=== PATIENT | female | born 1985 | race Caucasian/White ===

== ENCOUNTER 2017-01-03 14:16 | Emergency (ER) | payer BC ==
[~2017-01-03] VITALS: Ht 160 cm; Wt 85.3 kg
[~2017-01-03 14:16] MED LIST: MTR600X PO; OXYC5TAB PO; PRENTAB26 PO
[2017-01-03 14:20] VITALS: TEMP 36.3; Ht 160 cm; Wt 85.3 kg
[2017-01-03] MEDS ORDERED: SODIUM CHLORIDE 0.9% 1000ML 1,000 ML IV STA (14:43)
[2017-01-03] MEDS ORDERED: ONDANSETRON INJ 2 MG/ML 2 ML VIAL IV STA (14:51)
[2017-01-03 15:16] LABS: BASO % 0.2 %; BASO ABS # 0.02 K/uL (0-0.2); COMPLETE YES; EOS % 0.7 %; HEMATOCRIT 47.1 % (37-47); IG% 0.2 %; LYMPH % 16.8 %; LYMPH ABS # 1.82 K/uL (1.2-3.4); MEAN CELL VOLUME 87.2 fL (80-100); MEAN CORPUSCULAR HEMOGLOBIN 29.3 pg (25-34); MEAN CORPUSCULAR HGB CONC 33.5 g/dl (32-36); MEAN PLATELET VOLUME 9.9 fL (7.4-10.4); MONO % 7.5 %; NEUT % 74.6 %; PLATELET COUNT 271 K/uL (130-400); WHITE BLOOD COUNT 10.83 K/uL (4.8-10.8)
[2017-01-03] MEDS ORDERED: BUPR200T2 PO (15:20)
[2017-01-03] MEDS ORDERED: BCPILLS PO (15:20)
[2017-01-03] MEDS ORDERED: ONDA4TAB46 PO (15:20)
[2017-01-03] MEDS ORDERED: CNC/36 PO (15:20)
[2017-01-03 15:26] LABS: BUN/CREATININE RATIO 15.7 (10-20); CALCIUM 9.1 mg/dl (8.5-10.1); CREATININE 0.9 mg/dl (0.60-1.20); POTASSIUM 3.9 mmol/L (3.5-5.1)
--- NOTE | 2017-01-03 15:27 | DIAGNOSTIC IMAGING REPORT ---
ABDOMEN AND PELVIS CT WITHOUT CONTRAST CT DOSE: 1410.96 mGy.cm HISTORY: ryanne flank pain TECHNIQUE: Multiaxial CT images of the abdomen and pelvis were performed without the use of intravenous and oral contrast according to the standard department stone protocol. COMPARISON STUDY: None. FINDINGS: The lung bases are clear. The unenhanced liver, gallbladder, spleen, pancreas, and adrenal glands are unremarkable. No renal stones or hydronephrosis. No bowel wall thickening or obstruction. The pelvic organs are unremarkable. No suspicious lytic or blastic osseous lesions. IMPRESSION: No renal stones or hydronephrosis. Negative study Electronically signed by: Amol Castañeda M.D. 01/03/2017 3:26 PM Dictated Date/Time: 01/03/2017 3:22 PM
--- NOTE | 2017-01-03 15:45 | EMERGENCY ROOM VISIT NOTE ---
History First contact with patient: 14:26 Chief Complaint: VOMITING Stated Complaint: THROWING UP EXTREME BACK PAIN History of Present Illness The patient is a 31 year old female who presents to the Emergency Room with complaints of bilateral flank pain, bloating, nausea with vomiting. Patient states 2 weeks ago, she experienced an episode of back pain after working outside. She thought she may have been dehydrated at the time, due to working in the heat and not drinking much fluid. Patient states she went inside, laid on the floor, and drink water and Gatorade which made her at this time. Patient states she went to [facility] after this episode, where she was diagnosed with bronchitis and acute sinusitis. Patient states she was put on Augmentin twice a day and benzonatate which she finished this week. Patient states for the past 2 months, she has experienced abnormal uterine bleeding, and describes 2 periods per month. Patient states this began after she started on oral control pills in September. Patient is 8 months , and states she had a last April. This morning, patient states she began experiencing nausea at around 8:30. Patient states this improved after a short time. She states approximately 3 hours later, she began experiencing bilateral lower back pain. She thought she may have also been dehydrated at this time due to only drinking 2 cups of coffee this morning, so she drank some water, which caused her to become nauseated and throw up. Patient states now she is experiencing bilateral lower back pain, which comes in waves, and reports feeling very bloated, despite throwing up. Reports chills and sweats, but denies fever, body aches, abdominal pain, dyspnea, dysuria, hematuria, other associated symptoms. Patient did eat sticky buns this morning at around 9:30, which she didn't throw up. She states after vomiting, she was successful at 83 pretzels without further nausea or vomiting. Patient states at [facility] 2 weeks ago, she had a test completed, which was negative. Review of Systems A complete 10-system review of systems was performed. All pertinent positive and negative findings documented in HPI. All other ROS negative. Past Medical/Surgical History Medical Problems: (1) False labor (2) Term Social History Smoking Status: Never Smoker Smokeless Tobacco Use: No Alcohol Use: occasionally Drug Use: none Marital Status: Housing Status: lives with family Current/Historical Medications Scheduled Control Pills ( Control Pills), 1 TAB PO DAILY Bupropion (Wellbutrin Sr), 200 MG PO BID Methylphenidate Hcl (Concerta), 36 MG PO DAILY Ondasetron Odt (Zofran Odt), 4 MG SL Q6H Scheduled PRN Ondansetron Hcl (Zofran), 1 TAB PO PRN UD PRN for Nausea Allergies Coded Allergies: No Known Allergies (Unverified , 04/24/16) Physical Exam Vital Signs Date Time Temp Pulse Resp B/P (MAP) Pulse Ox O2 Delivery O2 Flow Rate FiO2 01/03/17 16:58 88 15 118/71 97 01/03/17 14:20 36.3 72 18 112/72 100 Room Air Physical Exam VITALS: Vitals are noted on the nurse's note and reviewed by myself. Vital signs stable. GENERAL: A 31-year-old female, in no acute distress, nondiaphoretic, well- developed well-nourished. HEENT: Normocephalic. PERRLA. EOMI. Nares patent. Mucous membranes moist. Neck is supple without nuchal rigidity. SKIN: The skin was without rashes, erythema, edema, or bruising. Capillary refill less than 2 seconds. NECK: Supple without nuchal rigidity. No cervical spine tenderness. No paraspinous muscle tenderness. HEART: Regular rate and rhythm without murmurs gallops or rubs. LUNGS: Clear to auscultation bilaterally without wheezes, rales or rhonchi. ABDOMEN: Supine position does worsen patient's flank pain. She is finding it difficult to lie in this position for any length of time. Positive bowel sounds x 4. Normal tympanic percussion. Positive CVA tenderness bilaterally Soft, nontender, without masses or organomegaly. Larkin sign negative. MUSCULOSKELETAL: No muscle atrophy, erythema, or edema noted of the back. There is no tenderness over the lumbar spinous processes. There is no tenderness over the paraspinous muscles bilaterally. There is no tenderness over the thoracic spine or paraspinous muscles. There are no muscle spasms present. The patient is slow to move around with maximum tenderness with lying supine. Negative straight leg raise test bilaterally. NEURO: Patient was alert and oriented to person place and time. Normal sensation to light and sharp touch. Deep tendon reflexes 2+ in the lower extremities. Dorsalis pedis pulse 2+ bilaterally. Strength 5/5 and equal in the bilateral lower extremities. Re-examination of Abdomen after fluids and Zofran: Pt. able to tolerate supine position. Minimal CVA tenderness on percussion. Positive Bowel sounds x4. Normal tympanic percussion. Abdomen soft, nontender, without masses or organomegaly. Larkin sign negative. Medical Decision & Procedures ER Provider Diagnostic Interpretation: CT Abdomen/Pelvis without Oral or IV contrast completed to r/o nephrolithiasis. Results read by radiologist and are as follows: FINDINGS: The lung bases are clear. The unenhanced liver, gallbladder, spleen, pancreas, and adrenal glands are unremarkable. No renal stones or hydronephrosis. No bowel wall thickening or obstruction. The pelvic organs are unremarkable. No suspicious lytic or blastic osseous lesions. IMPRESSION: No renal stones or hydronephrosis. Negative study Laboratory Results 01/03/17 14:59 Red Blood Count 5.40, Mean Corpuscular Volume 87.2, Mean Corpuscular Hemoglobin 29.3, Mean Corpuscular Hemoglobin Concent 33.5, Mean Platelet Volume 9.9, Neutrophils (%) (Auto) 74.6, Lymphocytes (%) (Auto) 16.8, Monocytes (%) (Auto) 7.5, Eosinophils (%) (Auto) 0.7, Basophils (%) (Auto) 0.2, Neutrophils # (Auto) 8.08, Lymphocytes # (Auto) 1.82, Monocytes # (Auto) 0.81, Eosinophils # (Auto) 0.08, Basophils # (Auto) 0.02 01/03/17 14:59 Test 01/03/17 14:59 01/03/17 16:10 White Blood Count 10.83 K/uL (4.8-10.8) Red Blood Count 5.40 M/uL (4.2-5.4) Hemoglobin 15.8 g/dL (12.0-16.0) Hematocrit 47.1 % (37-47) Mean Corpuscular Volume 87.2 fL (80-100) Mean Corpuscular Hemoglobin 29.3 pg (25-34) Mean Corpuscular Hemoglobin Concent 33.5 g/dl (32-36) Platelet Count 271 K/uL (130-400) Mean Platelet Volume 9.9 fL (7.4-10.4) Neutrophils (%) (Auto) 74.6 % Lymphocytes (%) (Auto) 16.8 % Monocytes (%) (Auto) 7.5 % Eosinophils (%) (Auto) 0.7 % Basophils (%) (Auto) 0.2 % Neutrophils # (Auto) 8.08 K/uL (1.4-6.5) Lymphocytes # (Auto) 1.82 K/uL (1.2-3.4) Monocytes # (Auto) 0.81 K/uL (0.11-0.59) Eosinophils # (Auto) 0.08 K/uL (0-0.5) Basophils # (Auto) 0.02 K/uL (0-0.2) RDW Standard Deviation 42.6 fL (36.4-46.3) RDW Coefficient of Variation 13.4 % (11.5-14.5) Immature Granulocyte % (Auto) 0.2 % Immature Granulocyte # (Auto) 0.02 K/uL (0.00-0.02) Anion Gap 8.0 mmol/L (3-11) Est Creatinine Clear Calc Drug Dose 93.7 ml/min Estimated GFR () 98.7 Estimated GFR (Non- 85.2 BUN/Creatinine Ratio 15.7 (10-20) Calcium Level 9.1 mg/dl (8.5-10.1) Total Bilirubin 0.7 mg/dl (0.2-1) Direct Bilirubin 0.4 mg/dl (0-0.2) Aspartate Amino Transf (AST/SGOT) 104 U/L (15-37) Alanine Aminotransferase (ALT/SGPT) 56 U/L (12-78) Alkaline Phosphatase 85 U/L (45-117) Total Protein 7.6 gm/dl (6.4-8.2) Albumin 3.8 gm/dl (3.4-5.0) Lipase 210 U/L (73-393) Urine Color DK YELLOW Urine Appearance CLEAR (CLEAR) Urine pH 6.0 (4.5-7.5) Urine Specific [place] 1.026 (1.000-1.030) Urine Protein NEG (NEG) Urine Glucose (UA) NEG (NEG) Urine Ketones TRACE (NEG) Urine Occult Blood NEG (NEG) Urine Nitrite NEG (NEG) Urine Bilirubin NEG (NEG) Urine Urobilinogen NEG (NEG) Urine Leukocyte Esterase NEG (NEG) Urine Test NEG (NEG) Medications Administered Medications (Trade) Dose Ordered Sig/Devaughn Route Start Time Stop Time Status Last Admin Dose Admin Sodium Chloride 1,000 ml @ 999 mls/hr Q1H1M STAT IV 01/03/17 14:43 01/03/17 15:43 DC 01/03/17 14:56 999 MLS/HR Ondansetron HCl (Zofran Inj) 4 mg NOW STAT IV 01/03/17 14:51 01/03/17 14:52 DC 01/03/17 14:56 4 MG Medical Decision Pt. was seen and evaluated as above. Labs and CT scan ordered, IV initiated, and NSS provided to patient, along with 4mg Zofran IV. Pt. does report improvement in symptoms with this therapy. Re-examination of patient as described above with significant improvement in abdominal exam. Labs were reviewed. Did note trace ketones on urine, elevation of AST to 104, elevated random blood glucose of 125. These findings all appear to be non- specific. CT scan reviewed and negative. I discussed the case with Dr. Graham, who agrees with the assessment and plan. Pt. was discharged home in good condition. DIFFERENTIAL DIAGNOSIS: UTI, nephrolithiasis, hydronephrosis, , acute gastroenteritis, musculoskeletal pain or muscle spasms, dehydration, and others. Impression Primary Impression: Flank pain, acute Departure Information Dispostion Home / Self-Care Condition GOOD Prescriptions Ondasetron Odt (ZOFRAN ODT) 4 Mg Tab 4 MG SL Q6H for Nausea for 5 Days, #20 TAB Prov: Marge Gonzales, JOSSY 01/03/17 Referrals Renee Philip D.O. (PCP) Patient Instructions ED Flank Pain Uncertain Cause, My [facility] Additional Instructions You have been treated in the Emergency Department your Abdominal discomfort and flank Pain. Laboratory results and imaging studies have ruled out any emergent causes for your abdominal pain which would warrant admission or surgery. You have been prescribed zofran to be used for any nausea or vomiting. Take as prescribed. For pain control, you can use the following [id number] medicines (if >12 yo): - Regular strength (325mg/tab) Tylenol (acetaminophen) 2 tabs every 4-6 hours as needed. Do not exceed 12 tablets in a 24 hour period. Avoid taking more than 4 grams (4000 mg) of Tylenol per day. This includes any other sources of acetaminophen you may take on a regular basis. - Regular strength (200 mg/tab) Advil (ibuprofen) 1-2 tabs every 4-6 hours as needed. Do not exceed a dose of 3200 mg per day. - You may alternate these two medications every 3 hours. Drink plenty of water and stay well hydrated. Avoid beverages high in sugar or caffeine. As with any trip to the Emergency Department, you should follow-up with your Primary Care Provider from today's visit. Due to your symptoms, and some slight abnormalities noted on your lab work, you should be certain to follow-up, preferably this week. Return to the emergency department if your symptoms persist despite treatment plan outlined above or if the following symptoms occur: increased fevers, chills , worsening nausea/vomiting, blood in your stool or urine.
[2017-01-03 16:23] LABS: URINE APPEARANCE CLEAR (CLEAR); URINE COLOR DK YELLOW; URINE NITRITE NEG (NEG); URINE SPECIFIC GRAVITY 1.026 (1.000-1.030); UROBILINOGEN NEG (NEG)
[2017-01-03 16:28] LABS: MANUAL MICROSCOPIC REQUIRED? NO; REVIEW REQ? NO; URINE BILIRUBIN NEG (NEG)
[2017-01-03] MEDS ORDERED: ONDA4TAB10 SL (16:49)
[2017-01-03 16:58] VITALS: BP 118/71; PULSE 88; O2SAT 97
== END 2017-01-03 16:59 | disposition home or self-care (01) ==
LOC: C.EDB 14:17 → C.EDC 16:59
DX: R10.9 Unspecified abdominal pain (principal); R11.2 Nausea with vomiting, unspecified; Z98.891 History of uterine scar from previous surgery

== ENCOUNTER 2017-12-01 09:59 | Inpatient (IN) | payer BC ==
[~2017-12-01] VITALS: Ht 160 cm; Wt 79.3 kg
[~2017-12-01 09:59] MED LIST changes: +BCPILLS PO; +BUPR200T2 PO; +CNC/36 PO; -MTR600X PO; +ONDA4TAB46 PO; -OXYC5TAB PO; -PRENTAB26 PO
[2017-12-01] MEDS ORDERED: METR500T PO (10:44)
[2017-12-01] MEDS ORDERED: OMEP20TA PO (10:44)
[2017-12-01] MEDS ORDERED: MoRPHine SULFATE 4 MG/ML 1 ML CARP\\VIAL IV STA ×2 (11:10→12:34)
[2017-12-01] MEDS ORDERED: ONDANSETRON INJ 2 MG/ML 2 ML VIAL IV STA (11:10)
[2017-12-01] MEDS ORDERED: SODIUM CHLORIDE 0.9% 1000ML 1,000 ML IV STA ×2 (11:10)
--- NOTE | 2017-12-01 11:16 | EMERGENCY ROOM VISIT NOTE ---
History Report prepared by Jamarcus: Michael Meneses Under the Supervision of: Dr. Cheryl Alcantar M.D. First contact with patient: 10:53 Chief Complaint: VOMITING Stated Complaint: VOMITING, BACK PAIN, STOMACH PAIN Nursing Triage Summary: Patient c/o of abdominal and back pain, nausea and vomiting since Wednesday night. Patient reports hx. of gallstones and stomach ulcers. History of Present Illness The patient is a 32 year old female who presents to the Emergency Room with complaints of constant back and abdominal pain that began on Wednesday, 2 days ago. The patient states that her pain is localized to the right flank and right lower abdominal quadrant. The pain is worsened by palpation. She has also felt nauseous and vomited. The patient notes that for the past couple of months she has been dealing with "gallstone issues." She was going to have the gallbladder removed until some stomach ulcers were found as well. She is currently on her menstrual cycle. Source of History: patient Onset: 2 days [employer] Position: back (Right flank) Timing: constant Modifying Factors (Worsening): other (palpation of the area) Associated Symptoms: + nausea, + vomiting, + abdominal pain (RLQ) Review of Systems See HPI for pertinent positives & negatives. A total of 10 systems reviewed and were otherwise negative. Past Medical & Surgical Medical Problems: (1) False labor (2) Term Family History Patient reports no known family medical history. Social History Smoking Status: Never Smoker Alcohol Use: occasionally Drug Use: none Marital Status: Housing Status: lives with family Current/Historical Medications Scheduled Control Pills ( Control Pills), 1 TAB PO DAILY Bupropion (Wellbutrin Sr), 200 MG PO BID Methylphenidate Hcl (Concerta), 36 MG PO DAILY Metronidazole (Flagyl), 500 MG PO BID Omeprazole (Omeprazole), 20 MG PO BID Allergies Coded Allergies: No Known Allergies (Unverified , 04/24/16) Physical Exam Vital Signs Date Time Temp Pulse Resp B/P (MAP) Pulse Ox O2 Delivery O2 Flow Rate FiO2 12/01/17 16:18 71 18 113/85 99 Room Air 12/01/17 14:13 69 16 126/81 98 Room Air 12/01/17 13:56 Room Air 12/01/17 12:06 59 16 139/94 98 Room Air 12/01/17 10:10 37.1 69 18 131/98 98 Room Air Physical Exam Vital signs reviewed. General: Well-appearing female, in some discomfort. HEENT: No scleral icterus, PERRLA, neck supple. Atraumatic. Cardiovascular: Regular rate and rhythm, no extra sounds. Pulmonary: Clear to auscultation bilaterally, normal work of breathing. Abdomen: Soft, tender to the RUQ, nondistended, positive bowel sounds. Musculoskeletal: Atraumatic, no peripheral edema.Minimal right CVA tenderness. Neurologic: Patient awake alert and oriented x 3 Skin: Warm, dry, no rash Medical Decision & Procedures ER Provider Diagnostic Interpretation: Radiology results as stated below per my review and radiologist interpretation: ABDOMINAL ULTRASOUND, RIGHT UPPER QUADRANT HISTORY: Right upper quadrant pain. COMPARISON: Abdomen and pelvis CT 01/03/2017. FINDINGS: Pancreas: The pancreatic head and tail are obscured by overlying bowel gas. The remaining portions of the pancreas are within normal limits. Liver: Unremarkable. Gallbladder: A few small stones and a small amount of sludge within the gallbladder. The technologist reported a positive sonographic Larkin's sign. Mild gallbladder wall thickening at 4 mm. Trace pericholecystic fluid. Therefore, these findings are highly suspicious for acute cholecystitis. CBD: Upper limits of normal measuring 6 mm. Right kidney: No hydronephrosis. IMPRESSION: Mild gallbladder wall thickening, trace pericholecystic fluid, and a few small gallstones. As described above, these findings are suspicious for acute cholecystitis. Laboratory Results Test 12/01/17 11:00 Urine Color DK YELLOW Urine Appearance TURBID (CLEAR) Urine pH 5.5 (4.5-7.5) Urine Specific [place] 1.028 (1.000-1.030) Urine Protein TRACE (NEG) Urine Glucose (UA) NEG (NEG) Urine Ketones 1+ (NEG) Urine Occult Blood 3+ (NEG) Urine Nitrite NEG (NEG) Urine Bilirubin NEG (NEG) Urine Urobilinogen NEG (NEG) Urine Leukocyte Esterase TRACE (NEG) Urine WBC (Auto) 1-5 /hpf (0-5) Urine RBC (Auto) >30 /hpf (0-4) Urine Hyaline Casts (Auto) 1-5 /lpf (0-5) Urine Epithelial Cells (Auto) >30 /lpf (0-5) Urine Bacteria (Auto) NEG (NEG) Urine Test NEG (NEG) Lipase 120 U/L (73-393) Laboratory results per my review. Medications Administered Medications (Trade) Dose Ordered Sig/Devaughn Route Start Time Stop Time Status Last Admin Dose Admin Morphine Sulfate (MoRPHine SULFATE INJ) 4 mg NOW STAT IV 12/01/17 11:10 12/01/17 11:13 DC 12/01/17 11:22 4 MG Ondansetron HCl (Zofran Inj) 4 mg NOW STAT IV 12/01/17 11:10 12/01/17 11:13 DC 12/01/17 11:23 4 MG Sodium Chloride 1,000 ml @ 125 mls/hr Q8H STAT IV 12/01/17 11:10 12/01/17 16:51 DC 12/01/17 11:22 125 MLS/HR Sodium Chloride 1,000 ml @ 999 mls/hr Q1H1M STAT IV 12/01/17 11:10 12/01/17 12:10 DC 12/01/17 11:10 999 MLS/HR Morphine Sulfate (MoRPHine SULFATE INJ) 4 mg NOW STAT IV 12/01/17 12:34 12/01/17 12:35 DC 12/01/17 12:34 4 MG Sodium Chloride 1,000 ml @ 100 mls/hr Q10H IV 12/01/17 14:35 12/31/17 14:34 12/03/17 01:43 100 MLS/HR Ondansetron HCl (Zofran Inj) 4 mg Q4H PRN IV 12/01/17 14:45 12/31/17 14:44 12/01/17 19:45 4 MG Morphine Sulfate (MoRPHine SULFATE INJ) 1 mg Q1H PRN IV 12/01/17 14:45 12/15/17 14:44 12/02/17 11:41 1 MG Morphine Sulfate (MoRPHine SULFATE INJ) 4 mg Q1H PRN IV 12/01/17 14:45 12/15/17 14:44 12/03/17 04:16 4 MG ED Course 1108: Past medical records reviewed. The patient was evaluated in room C5. A complete history and physical examination was performed. 1110: Ordered Sodium Chloride 1000 mL @ 999 mL/hr IV, Sodium Chloride 1000 mL @ 125 mL/hr IV, Zofran 4 mg IV, Morphine Sulfate 4 mg IV. 1234: Ordered Morphine Sulfate 4 mg IV. 1317: General surgery was paged. 1329: Case was discussed with Adriana Pacheco PA-C. She will evaluate the patient for further treatment. Medical Decision Differential diagnosis: Etiologies such as appendicitis, diverticulitis, PUD, biliary pathology, UTI, pancreatitis, obstruction, mesenteric ischemia, aortic pathology, infections, inflammatory bowel disease, renal colic, as well as others were entertained. This patient was evaluated and appeared to be in some discomfort. IV access was obtained and laboratory work was drawn. The patient was placed on secured entrance monitor and found to be in normal sinus rhythm. She was hydrated with normal saline solution, given IV morphine and Zofran for her discomforts. Ultrasound right upper quadrant was performed and is significant for acute cholecystitis. There is no evidence of obstructive pathology. Laboratory work reveals a normal white blood cell count, no elevation of the LFTs. Urinalysis indicates blood however patient is currently menstruating. Patient was discussed with general surgeon and will be evaluated for further management. She is aware of the plan and agrees. Medication Reconcilliation Current Medication List: was personally reviewed by me Blood Pressure Screening Patient's blood pressure: Normal blood pressure Consults Time Called: 1317 Consulting Physician: Adriana Pacheco PA-C Returned Call: 1321 I discussed the case with Adriana Pacheco PA-C. She will evaluate the patient for further treatment. Impression Primary Impression: Acute cholecystitis Scribe Attestation The scribe's documentation has been prepared under my direction and personally reviewed by me in its entirety. I confirm that the note above accurately reflects all work, treatment, procedures, and medical decision making performed by me. Departure Information Dispostion Being Evaluated By Hospitalist Renee Ruvalcaba D.O. (PCP) Patient Instructions My [facility]
[2017-12-01 11:22] LABS: BASO % 0.1 %; BASO ABS # 0.01 K/uL (0-0.2); EOS % 0.5 %; EOS ABS # 0.05 K/uL (0-0.5); HEMATOCRIT 48.2 % (37-47); HEMOGLOBIN 16.4 g/dL (12.0-16.0); IG# 0.01 K/uL (0.00-0.02); LYMPH ABS # 1.77 K/uL (1.2-3.4); MEAN CORPUSCULAR HEMOGLOBIN 29.9 pg (25-34); MONO % 4.3 %; MONO ABS # 0.42 K/uL (0.11-0.59); NEUT ABS # 7.59 K/uL (1.4-6.5); PLATELET COUNT 274 K/uL (130-400); RED CELL DISTRIBUTION WIDTH CV 13.3 % (11.5-14.5); RED CELL DISTRIBUTION WIDTH SD 43.1 fL (36.4-46.3); WHITE BLOOD COUNT 9.85 K/uL (4.8-10.8)
[2017-12-01 11:46] LABS: ALBUMIN 3.9 gm/dl (3.4-5.0); CALCIUM 9.3 mg/dl (8.5-10.1); CREATININE 0.98 mg/dl (0.60-1.20); POTASSIUM 3.9 mmol/L (3.5-5.1); TOTAL PROTEIN 8.6 gm/dl (6.4-8.2)
--- NOTE | 2017-12-01 13:16 | DIAGNOSTIC IMAGING REPORT ---
ABDOMINAL ULTRASOUND, RIGHT UPPER QUADRANT HISTORY: Right upper quadrant pain. COMPARISON: Abdomen and pelvis CT 01/03/2017. FINDINGS: Pancreas: The pancreatic head and tail are obscured by overlying bowel gas. The remaining portions of the pancreas are within normal limits. Liver: Unremarkable. Gallbladder: A few small stones and a small amount of sludge within the gallbladder. The technologist reported a positive sonographic Larkin's sign. Mild gallbladder wall thickening at 4 mm. Trace pericholecystic fluid. Therefore, these findings are highly suspicious for acute cholecystitis. CBD: Upper limits of normal measuring 6 mm. Right kidney: No hydronephrosis. IMPRESSION: Mild gallbladder wall thickening, trace pericholecystic fluid, and a few small gallstones. As described above, these findings are suspicious for acute cholecystitis. Electronically signed by: Arnold Stratton M.D. 12/01/2017 1:14 PM Dictated Date/Time: 12/01/2017 1:11 PM
[2017-12-01 13:56] VITALS: Ht 160 cm; Wt 79.3 kg
--- NOTE | 2017-12-01 14:40 | History and Physical ---
History & Physical Date & Time of Service: December 01, 2017 at 14:40 Chief Complaint: Vomiting, Back Pain, Stomach Pain Primary Care Physician: Renee Philip D.O. History of Present Illness Source: patient Elaine is a 32-year-old female who presented to the emergency room today with complaint of constant back and abdominal pain specifically in the right upper quadrant that began on Wednesday. Elaine states she has had some issues with gallstones for the past few months and was going to have her gallbladder removed until she was found to have gastric ulcers. States she would intermittently have right upper quadrant abdominal pain with radiation to the back after eating fatty greasy meals. The pain would last for a few hours and then resolved. She states on Wednesday she had some hot sausage and ice cream and noticed some nausea and vomiting following and then in the evening started developing back and right sided abdominal pain. States the back pain persisted and did not improve. Denies of any fevers, chills, vomiting blood, chest pain, shortness of breath, difficulty breathing, changes in bowel habits, diarrhea, constipation, blood in stools, black tarry stools. She takes Prilosec daily. Denies of any significant heartburn or reflux. Emergency room evaluation included labs which showed no leukocytosis and total bilirubin and LFTs within normal limits. Abdominal ultrasound of the right upper quadrant showing a few small stones and small amount of sludge within the gallbladder. There is mild gallbladder wall thickening of 4 mm and trace pericholecystic fluid. There is positive sonographic Larkin sign. Therefore these findings are highly suspicious for acute cholecystitis. Common bile duct upper limits of normal measuring 6 mm. Past Medical/Surgical History Medical Problems: (1) Depression/anxiety (2) Peptic ulcer disease (3) Symptomatic gallstones Past Surgical History: 1. Section Family History Patient reports no known family medical history. Social History Smoking Status: Never Smoker Drug Use: none Marital Status: Allergies Coded Allergies: No Known Allergies (Unverified , 04/24/16) Home Medications Scheduled Control Pills ( Control Pills), 1 TAB PO DAILY Bupropion (Wellbutrin Sr), 200 MG PO BID Methylphenidate Hcl (Concerta), 36 MG PO DAILY Metronidazole (Flagyl), 500 MG PO BID Omeprazole (Omeprazole), 20 MG PO BID Review of Systems Constitutional: No fever, No chills, No sweats, No weakness, No fatigue Respiratory: No cough, No shortness of breath Cardiovascular: No chest pain Abdomen: + pain, + nausea, + vomiting, No diarrhea, No constipation, No GI bleeding Musculoskeletal: + problem reported (Right sided back pain) Genitourinary - Female: No dysuria, No urinary frequency, No urinary urgency, No hematuria Endocrine: No fatigue Hematologic / Lymphatic: No abnormal bleeding/bruising Integumentary: No rash Physical Exam Vital Signs Date Time Temp Pulse Resp B/P (MAP) Pulse Ox O2 Delivery O2 Flow Rate FiO2 12/01/17 14:13 69 16 126/81 98 Room Air 12/01/17 13:56 Room Air 12/01/17 12:06 59 16 139/94 98 Room Air 12/01/17 10:10 37.1 69 18 131/98 98 Room Air General Appearance: WD/WN, no apparent distress, + obese Head: normocephalic, atraumatic Eyes: sclerae normal ENT: hearing grossly normal Neck: trachea midline Respiratory/Chest: lungs clear, normal breath sounds, no respiratory distress, no accessory muscle use Cardiovascular: regular rate, rhythm, no murmur Abdomen/GI: soft, no organomegaly, no pulsatile mass, + tenderness (RUB on deep palpation and epigastrium, no rigidity, guarding, rebound. Negative larkin' s on my examination) Back: normal inspection Extremities/Musculoskelatal: no pedal edema Neurologic/Psych: alert, normal mood/affect, oriented x 3 Skin: normal color, warm/dry, no rash Diagnostics Laboratory Results Results Past 24 Hours Test 12/01/17 11:00 Range/Units White Blood Count 9.85 4.8-10.8 K/uL Red Blood Count 5.48 4.2-5.4 M/uL Hemoglobin 16.4 12.0-16.0 g/dL Hematocrit 48.2 37-47 % Mean Corpuscular Volume 88.0 80-100 fL Mean Corpuscular Hemoglobin 29.9 25-34 pg Mean Corpuscular Hemoglobin Concent 34.0 32-36 g/dl Platelet Count 274 130-400 K/uL Mean Platelet Volume 10.0 7.4-10.4 fL Neutrophils (%) (Auto) 77.0 % Lymphocytes (%) (Auto) 18.0 % Monocytes (%) (Auto) 4.3 % Eosinophils (%) (Auto) 0.5 % Basophils (%) (Auto) 0.1 % Neutrophils # (Auto) 7.59 1.4-6.5 K/uL Lymphocytes # (Auto) 1.77 1.2-3.4 K/uL Monocytes # (Auto) 0.42 0.11-0.59 K/uL Eosinophils # (Auto) 0.05 0-0.5 K/uL Basophils # (Auto) 0.01 0-0.2 K/uL RDW Standard Deviation 43.1 36.4-46.3 fL RDW Coefficient of Variation 13.3 11.5-14.5 % Immature Granulocyte % (Auto) 0.1 % Immature Granulocyte # (Auto) 0.01 0.00-0.02 K/uL Urine Color DK YELLOW Urine Appearance TURBID CLEAR Urine pH 5.5 4.5-7.5 Urine Specific [place] 1.028 1.000-1.030 Urine Protein TRACE NEG Urine Glucose (UA) NEG NEG Urine Ketones 1+ NEG Urine Occult Blood 3+ NEG Urine Nitrite NEG NEG Urine Bilirubin NEG NEG Urine Urobilinogen NEG NEG Urine Leukocyte Esterase TRACE NEG Urine WBC (Auto) 1-5 0-5 /hpf Urine RBC (Auto) >30 0-4 /hpf Urine Hyaline Casts (Auto) 1-5 0-5 /lpf Urine Epithelial Cells (Auto) >30 0-5 /lpf Urine Bacteria (Auto) NEG NEG Urine Test NEG NEG Sodium Level 138 136-145 mmol/L Potassium Level 3.9 3.5-5.1 mmol/L Chloride Level 104 98-107 mmol/L Carbon Dioxide Level 29 21-32 mmol/L Anion Gap 5.0 3-11 mmol/L Blood Urea Nitrogen 10 7-18 mg/dl Creatinine 0.98 0.60-1.20 mg/dl Est Creatinine Clear Calc Drug Dose 82.2 ml/min Estimated GFR () 88.5 Estimated GFR (Non- 76.3 BUN/Creatinine Ratio 10.4 10-20 Random Glucose 99 70-99 mg/dl Calcium Level 9.3 8.5-10.1 mg/dl Total Bilirubin 0.8 0.2-1 mg/dl Direct Bilirubin 0.1 0-0.2 mg/dl Aspartate Amino Transf (AST/SGOT) 15 15-37 U/L Alanine Aminotransferase (ALT/SGPT) 25 12-78 U/L Alkaline Phosphatase 81 45-117 U/L Total Protein 8.6 6.4-8.2 gm/dl Albumin 3.9 3.4-5.0 gm/dl Lipase 120 73-393 U/L Diagnostic Radiology ABDOMINAL ULTRASOUND, RIGHT UPPER QUADRANT HISTORY: Right upper quadrant pain. COMPARISON: Abdomen and pelvis CT 01/03/2017. FINDINGS: Pancreas: The pancreatic head and tail are obscured by overlying bowel gas. The remaining portions of the pancreas are within normal limits. Liver: Unremarkable. Gallbladder: A few small stones and a small amount of sludge within the gallbladder. The technologist reported a positive sonographic Larkin's sign. Mild gallbladder wall thickening at 4 mm. Trace pericholecystic fluid. Therefore, these findings are highly suspicious for acute cholecystitis. CBD: Upper limits of normal measuring 6 mm. Right kidney: No hydronephrosis. IMPRESSION: Mild gallbladder wall thickening, trace pericholecystic fluid, and a few small gallstones. As described above, these findings are suspicious for acute cholecystitis. Impression Assessment and Plan 32-year-old female who presented to the emergency room with 2 day history of back and right upper quadrant pain associated with nausea and vomiting. Chronic history of intermittent right upper quadrant and back pain following fatty greasy meal specifically. Pain would usually last for a few hours and resolve. Known history of gallstones and peptic ulcer disease. Nausea and vomiting started Wednesday evening after eating hot sausage and ice cream And then right upper quadrant abdominal pain and back pain began and persisted. Workup including labs and abdominal ultrasound showing no leukocytosis or elevated total bilirubin or LFTs however ultrasound showing gallstones, sludge, gallbladder wall thickening and trace pericholecystic fluid consistent with acute cholecystitis. Plan: Plan to admit patient to medical surgical floor for observation. We will plan for laparoscopic cholecystectomy possible open possible cholangiogram tomorrow with Dr. Santana. Patient was informed of procedure and risks including bleeding, infection, injury to common bile duct, bile duct leak, injury to bowel, blood clots. Patient understood and informed consent has been obtained by Dr. Santana. We will start on IV fluids at 100 mL's per hour, IV antibiotics Cipro and Flagyl , IV pain medication as needed for pain, IV Zofran as needed for nausea, clear liquid diet, n.p.o. after midnight, SCDs for DVT prophylaxis. Repeat a.m. labs including CBC BMP and liver profile. Dr. Santana was present during consultation and examination and agrees with above. Advanced Directives Existing Living Will: No Existing Power of Hook And Eye Sewing Machine Operator: No Resuscitation Status VTE Prophylaxis Will order VTE Prophylaxis: Yes
[2017-12-01] MEDS ORDERED: ONDANSETRON INJ 2 MG/ML 2 ML VIAL IV PRN (14:45)
[2017-12-01] MEDS ORDERED: MoRPHine SULFATE 4 MG/ML 1 ML CARP\\VIAL IV PRN ×2 (14:45)
[2017-12-01] MEDS ORDERED: IV FLUIDS COMPLETED PRN ×2 (15:00→16:30)
[2017-12-01] MEDS: MoRPHine SULFATE 4 MG/ML 1 ML CARP\\VIAL IV PRN ×2 (16:15→23:16)
[2017-12-01] MEDS: SODIUM CHLORIDE 0.9% 1000ML 1,000 ML IV SCH ×2 (16:58→20:02)
[2017-12-01] MEDS: CIPROFLOXACIN / D5W 400 MG in PREMIXED IN D5W 200 ML IV SCH (17:24)
[2017-12-01] MEDS: METRONIDAZOLE / NSS 500 MG in PREMIXED NSS 0 ML IV SCH (17:24)
[2017-12-01 18:34] VITALS: BP 116/77; PULSE 81; TEMP 37.4; O2SAT 96
[2017-12-01 23:00] VITALS: BP 104/65; PULSE 104; TEMP 36.9; O2SAT 93
[2017-12-01] MEDS ORDERED: NURSING DECISION MEDICATION ORDER SCH (23:30)
[2017-12-02] VITALS (8 sets, daily range): BP systolic 104–135; BP diastolic 70–90; PULSE 69–109; TEMP 36.6–37.3; O2SAT 94–98
[2017-12-02] MEDS: METRONIDAZOLE / NSS 500 MG in PREMIXED NSS 0 ML IV SCH ×3 (00:27→16:58)
[2017-12-02] MEDS: CIPROFLOXACIN / D5W 400 MG in PREMIXED IN D5W 200 ML IV SCH ×2 (05:11→16:55)
[2017-12-02] MEDS: SODIUM CHLORIDE 0.9% 1000ML 1,000 ML IV SCH ×2 (05:11→16:53)
[2017-12-02 06:30] LABS: BASO % 0.1 %; BASO ABS # 0.01 K/uL (0-0.2); EOS % 0.3 %; EOS ABS # 0.02 K/uL (0-0.5); HEMATOCRIT 41.4 % (37-47); HEMOGLOBIN 14.1 g/dL (12.0-16.0); IG# 0.01 K/uL (0.00-0.02); LYMPH % 14.8 %; LYMPH ABS # 1.17 K/uL (1.2-3.4); MEAN CELL VOLUME 87.2 fL (80-100); MEAN CORPUSCULAR HEMOGLOBIN 29.7 pg (25-34); MEAN CORPUSCULAR HGB CONC 34.1 g/dl (32-36); MEAN PLATELET VOLUME 9.5 fL (7.4-10.4); MONO ABS # 0.79 K/uL (0.11-0.59); NEUT % 74.7 %; PLATELET COUNT 225 K/uL (130-400); RED CELL DISTRIBUTION WIDTH CV 13.4 % (11.5-14.5); RED CELL DISTRIBUTION WIDTH SD 42.7 fL (36.4-46.3)
[2017-12-02 07:20] LABS: ALBUMIN 2.8 gm/dl (3.4-5.0); CREATININE 0.7 mg/dl (0.60-1.20); POTASSIUM 3.8 mmol/L (3.5-5.1); TOTAL PROTEIN 6.4 gm/dl (6.4-8.2)
--- NOTE | 2017-12-02 09:44 | Surgery Progress Note ---
Surgery Progress Note Date of Service December 02, 2017. Subjective Post OP Day: HD # 1 + feeling well, + complaints (some RUQ mild ache but back pain has resolved. Some nausea and vomiting last night), + nausea, + vomiting, No chest pain, No SOB Objective Vital Signs: Date Time Temp Pulse Resp B/P (MAP) Pulse Ox O2 Delivery O2 Flow Rate FiO2 12/02/17 08:43 94 Room Air 12/02/17 07:48 36.6 96 20 104/70 (81) 94 Room Air 12/02/17 07:10 Room Air 12/01/17 23:20 Room Air 12/01/17 23:00 36.9 104 18 104/65 (78) 93 Room Air 12/01/17 18:34 37.4 81 17 116/77 (90) 96 Room Air 12/01/17 17:05 Room Air 12/01/17 16:18 71 18 113/85 99 Room Air 12/01/17 14:13 69 16 126/81 98 Room Air 12/01/17 13:56 Room Air 12/01/17 12:06 59 16 139/94 98 Room Air 12/01/17 10:10 37.1 69 18 131/98 98 Room Air General Appearance: WD/WN, no apparent distress Head: normocephalic, atraumatic Neck: trachea midline Respiratory/Chest: lungs clear, normal breath sounds, no respiratory distress, no accessory muscle use Cardiovascular: regular rate, rhythm, no murmur Abdomen: non distended, soft, no organomegaly, no pulsatile mass, + tenderness (RUQ and epigastric region, negative Larkin's , no peritonitis, guarding, or rigidity) Laboratory Results: Results Past 24 Hours Test 12/01/17 11:00 12/02/17 06:04 Range/Units White Blood Count 9.85 7.90 4.8-10.8 K/uL Red Blood Count 5.48 4.75 4.2-5.4 M/uL Hemoglobin 16.4 14.1 12.0-16.0 g/dL Hematocrit 48.2 41.4 37-47 % Mean Corpuscular Volume 88.0 87.2 80-100 fL Mean Corpuscular Hemoglobin 29.9 29.7 25-34 pg Mean Corpuscular Hemoglobin Concent 34.0 34.1 32-36 g/dl Platelet Count 274 225 130-400 K/uL Mean Platelet Volume 10.0 9.5 7.4-10.4 fL Neutrophils (%) (Auto) 77.0 74.7 % Lymphocytes (%) (Auto) 18.0 14.8 % Monocytes (%) (Auto) 4.3 10.0 % Eosinophils (%) (Auto) 0.5 0.3 % Basophils (%) (Auto) 0.1 0.1 % Neutrophils # (Auto) 7.59 5.90 1.4-6.5 K/uL Lymphocytes # (Auto) 1.77 1.17 1.2-3.4 K/uL Monocytes # (Auto) 0.42 0.79 0.11-0.59 K/uL Eosinophils # (Auto) 0.05 0.02 0-0.5 K/uL Basophils # (Auto) 0.01 0.01 0-0.2 K/uL RDW Standard Deviation 43.1 42.7 36.4-46.3 fL RDW Coefficient of Variation 13.3 13.4 11.5-14.5 % Immature Granulocyte % (Auto) 0.1 0.1 % Immature Granulocyte # (Auto) 0.01 0.01 0.00-0.02 K/uL Urine Color DK YELLOW Urine Appearance TURBID CLEAR Urine pH 5.5 4.5-7.5 Urine Specific [place] 1.028 1.000-1.030 Urine Protein TRACE NEG Urine Glucose (UA) NEG NEG Urine Ketones 1+ NEG Urine Occult Blood 3+ NEG Urine Nitrite NEG NEG Urine Bilirubin NEG NEG Urine Urobilinogen NEG NEG Urine Leukocyte Esterase TRACE NEG Urine WBC (Auto) 1-5 0-5 /hpf Urine RBC (Auto) >30 0-4 /hpf Urine Hyaline Casts (Auto) 1-5 0-5 /lpf Urine Epithelial Cells (Auto) >30 0-5 /lpf Urine Bacteria (Auto) NEG NEG Urine Test NEG NEG Sodium Level 138 137 136-145 mmol/L Potassium Level 3.9 3.8 3.5-5.1 mmol/L Chloride Level 104 106 98-107 mmol/L Carbon Dioxide Level 29 24 21-32 mmol/L Anion Gap 5.0 7.0 3-11 mmol/L Blood Urea Nitrogen 10 9 7-18 mg/dl Creatinine 0.98 0.70 0.60-1.20 mg/dl Est Creatinine Clear Calc Drug Dose 82.2 115.0 ml/min Estimated GFR () 88.5 132.9 Estimated GFR (Non- 76.3 114.6 BUN/Creatinine Ratio 10.4 12.6 10-20 Random Glucose 99 121 70-99 mg/dl Calcium Level 9.3 8.0 8.5-10.1 mg/dl Total Bilirubin 0.8 1.1 0.2-1 mg/dl Direct Bilirubin 0.1 0.2 0-0.2 mg/dl Aspartate Amino Transf (AST/SGOT) 15 133 15-37 U/L Alanine Aminotransferase (ALT/SGPT) 25 110 12-78 U/L Alkaline Phosphatase 81 90 45-117 U/L Total Protein 8.6 6.4 6.4-8.2 gm/dl Albumin 3.9 2.8 3.4-5.0 gm/dl Lipase 120 73-393 U/L Assessment & Plan Acute Calculous Cholecystitis -vitals stable, afebrile - no leukocytosis - mild bump in LFTS and T. Bili, D. Bili wnl - back pain improved, dull ache in RUQ Plan: For laparoscopic cholecystectomy today Continue IV fluids, IV antibiotics, IV pain medication and Zofran as needed Keep NPO
[2017-12-02] MEDS: MoRPHine SULFATE 4 MG/ML 1 ML CARP\\VIAL IV PRN ×2 (13:37→16:02)
--- NOTE | 2017-12-02 17:19 | History & Physical Bridge Note ---
H&P Re-Evaluation Bridge Note: I have examined the patient, reviewed the History & Physical and in the interval since the performance of the History & Physical I have noted the following changes of clinical significance: No changes noted
--- NOTE | 2017-12-02 17:19 | Surgery Progress Note ---
Surgery Progress Note Date of Service December 02, 2017. Subjective + feeling well pt feels better, but pt is still have RUQ pain.no nausea, no vomiting, Objective Vital Signs: Date Time Temp Pulse Resp B/P (MAP) Pulse Ox O2 Delivery O2 Flow Rate FiO2 12/02/17 15:16 37.3 70 17 135/90 (105) 98 Room Air 12/02/17 15:00 Room Air 12/02/17 11:58 36.9 71 20 124/86 (99) 98 Room Air 12/02/17 08:43 94 Room Air 12/02/17 07:48 36.6 96 20 104/70 (81) 94 Room Air 12/02/17 07:10 Room Air 12/01/17 23:20 Room Air 12/01/17 23:00 36.9 104 18 104/65 (78) 93 Room Air 12/01/17 18:34 37.4 81 17 116/77 (90) 96 Room Air General Appearance: WD/WN, no apparent distress Head: normocephalic Neck: supple, no JVD Respiratory/Chest: chest non-tender, lungs clear, normal breath sounds Cardiovascular: regular rate, rhythm, no edema, no gallop, no JVD, no murmur Abdomen: normal bowel sounds, non distended, soft, + tenderness (at RUQ , no rebound pain) Extremities: normal range of motion, non-tender, normal inspection Laboratory Results: Results Past 24 Hours Test 12/02/17 06:04 Range/Units White Blood Count 7.90 4.8-10.8 K/uL Red Blood Count 4.75 4.2-5.4 M/uL Hemoglobin 14.1 12.0-16.0 g/dL Hematocrit 41.4 37-47 % Mean Corpuscular Volume 87.2 80-100 fL Mean Corpuscular Hemoglobin 29.7 25-34 pg Mean Corpuscular Hemoglobin Concent 34.1 32-36 g/dl Platelet Count 225 130-400 K/uL Mean Platelet Volume 9.5 7.4-10.4 fL Neutrophils (%) (Auto) 74.7 % Lymphocytes (%) (Auto) 14.8 % Monocytes (%) (Auto) 10.0 % Eosinophils (%) (Auto) 0.3 % Basophils (%) (Auto) 0.1 % Neutrophils # (Auto) 5.90 1.4-6.5 K/uL Lymphocytes # (Auto) 1.17 1.2-3.4 K/uL Monocytes # (Auto) 0.79 0.11-0.59 K/uL Eosinophils # (Auto) 0.02 0-0.5 K/uL Basophils # (Auto) 0.01 0-0.2 K/uL RDW Standard Deviation 42.7 36.4-46.3 fL RDW Coefficient of Variation 13.4 11.5-14.5 % Immature Granulocyte % (Auto) 0.1 % Immature Granulocyte # (Auto) 0.01 0.00-0.02 K/uL Sodium Level 137 136-145 mmol/L Potassium Level 3.8 3.5-5.1 mmol/L Chloride Level 106 98-107 mmol/L Carbon Dioxide Level 24 21-32 mmol/L Anion Gap 7.0 3-11 mmol/L Blood Urea Nitrogen 9 7-18 mg/dl Creatinine 0.70 0.60-1.20 mg/dl Est Creatinine Clear Calc Drug Dose 115.0 ml/min Estimated GFR () 132.9 Estimated GFR (Non- 114.6 BUN/Creatinine Ratio 12.6 10-20 Random Glucose 121 70-99 mg/dl Calcium Level 8.0 8.5-10.1 mg/dl Total Bilirubin 1.1 0.2-1 mg/dl Direct Bilirubin 0.2 0-0.2 mg/dl Aspartate Amino Transf (AST/SGOT) 133 15-37 U/L Alanine Aminotransferase (ALT/SGPT) 110 12-78 U/L Alkaline Phosphatase 90 45-117 U/L Total Protein 6.4 6.4-8.2 gm/dl Albumin 2.8 3.4-5.0 gm/dl Assessment & Plan IMP : acute cholecystitis, with cholelithiasis pt requests to do laparoscopic cholecystectomy possible open or cholangiogram, D /W benefits, risks and alternatives of the procedure, the risks - infection, bleeding, injury CBD, bowel, biliary leak, may need ERCP, pt understood, she agrees with the surgery, I answered all questions,
[2017-12-02] MEDS ORDERED: LIDOCAINE HCL 1% 20 ML VIAL ONE (17:37)
[2017-12-02] MEDS ORDERED: BACITRACIN OINT 15 GM TUBE ONE (17:37)
[2017-12-02] MEDS ORDERED: BUPIVACAINE 0.25% 30 ML VIAL ONE (17:37)
[2017-12-02] MEDS ORDERED: HYDROmorphone INJ 2 MG/ML SYR/VIAL IV PRN (17:45)
[2017-12-02] MEDS ORDERED: FENTANYL CITRATE INJ 50 MCG/1 ML 2 ML VIAL IV PRN (17:45)
[2017-12-02] MEDS ORDERED: EpHEDrine SULFATE INJ 50 MG/ML AMP IV PRN (17:45)
[2017-12-02] MEDS ORDERED: ATROPINE SULFATE 0.1 MG/ML 5ML SYR IV PRN (17:45)
[2017-12-02] MEDS ORDERED: LABETALOL HCL IV 5 MG/ML 20ML IV PRN (17:45)
[2017-12-02] MEDS ORDERED: ONDANSETRON INJ 2 MG/ML 2 ML VIAL IV PRN (17:45)
[2017-12-02] MEDS ORDERED: MEPERIDINE HCL 25 MG/ML CARP IV PRN (17:45)
[2017-12-02] MEDS ORDERED: CEFAZOLIN SOD 2000MG/15 ML IV PUSH ONE ×2 (17:51→18:11)
[2017-12-02] MEDS ORDERED: MIDAZOLAM HCL 1 MG/ML 2ML VIAL ONE (18:00)
[2017-12-02] MEDS ORDERED: FENTANYL CITRATE INJ 50 MCG/1 ML 2 ML VIAL ONE ×2 (18:00→18:45)
[2017-12-02] MEDS ORDERED: DEXAMETHASONE SOD INJ 4 MG/ML VIAL ONE (18:43)
[2017-12-02] MEDS ORDERED: ROCURONIUM BROMIDE 10 MG/ML 5 ML VIAL ONE (18:43)
[2017-12-02] MEDS ORDERED: ONDANSETRON INJ 2 MG/ML 2 ML VIAL ONE (18:43)
[2017-12-02] MEDS ORDERED: LIDOCAINE HCL 2% 2 ML VIAL (20MG/ML) ONE (18:43)
[2017-12-02] MEDS ORDERED: PROPOFOL IV EMULSION 10 MG/ML 20 ML VIAL ONE (18:43)
[2017-12-02] MEDS ORDERED: ESMOLOL HCL 10 MG/ML 10 ML VIAL ONE (18:52)
[2017-12-02] MEDS ORDERED: GLYCOPYRROLATE INJ 0.2 MG/ML VIAL ONE (20:02)
[2017-12-02] MEDS ORDERED: NEOSTIGMINE METHYLSULFATE 5 MG/5 ML SYR ONE (20:02)
--- NOTE | 2017-12-02 20:06 | [facility] Post Operative Brief Note ---
Immediate Operative Summary Operative Date December 02, 2017. Pre-Operative Diagnosis Acute cholecystitis, cholelithiasis Post-Operative Diagnosis Acute cholecystitis, cholelithiasis Procedure(s) Performed Laparoscopic Cholecystectomy Surgeon Dr. Santana Shipping Helper Surgeon(s) None Estimated Blood Loss 20CC Findings Consistent with Post-Op Diagnosis Fluids (cc crystalloids) 800ml Specimens A. Gallbladder and contents Drains NAVIN x 1 Anesthesia Type General Complication(s) none Disposition Accompanied Pt To Recover: yes Disposition: Recovery Room / PACU
--- NOTE | 2017-12-02 20:35 | Anesthesiology Progress Note ---
Anesthesia Post Op Note Date & Time December 02, 2017 at 20:35 Vital Signs Pain Intensity: 0 Vital Signs Past 12 Hours Date Time Temp Pulse Resp B/P (MAP) Pulse Ox O2 Delivery O2 Flow Rate FiO2 12/02/17 20:25 66 16 124/82 99 Room Air 12/02/17 20:19 36.3 77 20 125/85 94 Room Air 12/02/17 15:16 37.3 70 17 135/90 (105) 98 Room Air 12/02/17 15:00 Room Air 12/02/17 11:58 36.9 71 20 124/86 (99) 98 Room Air 12/02/17 08:43 94 Room Air Notes Mental Status: alert / awake / arousable, participated in evaluation Pt Amnestic to Procedure: Yes Nausea / Vomiting: adequately controlled Pain: adequately controlled Airway Patency, RR, SpO2: stable & adequate BP & HR: stable & adequate Hydration State: stable & adequate Anesthetic Complications: no major complications apparent
--- NOTE | 2017-12-02 21:26 | OPERATIVE REPORT ---
DATE OF OPERATION: 12/02/2017 PREOPERATIVE DIAGNOSIS: Acute cholecystitis, cholelithiasis. POSTOPERATIVE DIAGNOSIS: Same. PROCEDURE: Laparoscopic cholecystectomy. SURGEON: Mary Santana MD ANESTHESIA: General. ESTIMATED BLOOD LOSS: About 20 mL. FINDINGS: Significant inflammation, gallbladder wall significant thickening, edema. DRAINS: NAVIN drainage x1. COMPLICATIONS: None. INDICATIONS FOR THE PROCEDURE: This is a 32-year-old female who was admitted to the hospital for acute cholecystitis with cholelithiasis. Patient will be required to do laparoscopic cholecystectomy, possible open, possible cholangiogram. I did talk to patient about the benefits and risks, alternate procedures. I indicated the risks may include, but not limited to such as bleeding, infection, injury to common bile duct, injury to bowel, may need ERCP, bile leak. Patient understands. She signed informed consent and she agreed to proceed. I answered all questions. DETAILS OF PROCEDURE: We brought in patient to the OR, put the patient on the supine position. Patient received SCD on bilateral legs to prevent DVT. Also patient received 2 grams Ancef IV for prophylactic antibiotic. Patient received general anesthesia without difficulty. The abdomen was appropriately draped in routine sterile fashion. After time-out, I injected local anesthesia by using 1% lidocaine just above the umbilical. Then I made a small incision just above umbilical, opened the fascia and opened peritoneum under direct vision, put a Mirtha trocar in, connected to CO2 to create pneumoperitoneum. Flow rate at 6 liter per minute. Pressure not more than 14 mmHg. Once we got a nice pneumoperitoneum, we put the camera in, looked around the abdomen. It showed normal finding on the stomach, small bowel, large bowel, liver. However, the gallbladder showed significant gallbladder inflammation, gallbladder wall thickening, edema. Then, we put another three 5-mm trocars on the right upper quadrant. Once all trocars in, we put a grasper in to hold the base of the gallbladder, put direction to the diaphragm, and put another grasper and held the pouch of gallbladder, we put the latter to expose the triangle of Calot. Also, based on the significant inflammation of gallbladder, we used a large needle to decompress the gallbladder first. Then the cystic duct was identified and mobilized. I put a 10-mm on the proximal cystic duct, one on the distal cystic duct. Then I used scissors for transection of the cystic duct. Before we used a 10 mm metal clip, will had to change her 5 mm shunt to 11 trocar on the epigastric area. Then the cystic artery was identified and mobilized. Then I put two 5-mm metal clips on the proximal cystic artery and one on the distal cystic artery and then used scissors for transection of the cystic artery. I used a Bovie to take down gallbladder without difficulty and then rechecked, no active bleeding, no bile leak; however, based on patient has significant inflammation of gallbladder once we took it down, we decided to put one 10-mm NAVIN drainage. Then we removed gallbladder through the catch bag, then we reinserted Mirtha trocar, and connected to CO2 to create pneumoperitoneum. Again looked around the abdomen, showed no bile leak and no active bleeding from liver bed. Then we removed all trocar under direct vision. No active bleeding from trocar sites. Then we closed the umbilical incision, fascial layer by using #1 Vicryl [id number] x2, closed subcutaneous layer by using 2-0 Vicryl interrupted, and closed skin by using 4-0 Vicryl continuous running. Closed the epigastric area incision, closed fascia by using #1 Vicryl [id number] x2, closed subcutaneous layer by using 2-0 Vicryl interrupted, and closed skin by using 4-0 Vicryl continuous running. Closed another two 5 mm trocar sites skin only by using 4-0 Vicryl. Then we put the dressing on. The patient tolerated the procedure well. All the instrument, needle, and sponge counts were correct x2 at the end of case. After procedure, the patient was transferred to the recovery room in a stable condition. The specimen sent to pathology. I attest to the content of the Intraoperative Record and any orders documented therein. Any exception s are noted below.
[2017-12-03 00:03] VITALS: BP 109/71; PULSE 95; TEMP 36.4; O2SAT 97
[2017-12-03] MEDS: METRONIDAZOLE / NSS 500 MG in PREMIXED NSS 0 ML IV SCH ×2 (01:43→09:52)
[2017-12-03] MEDS: SODIUM CHLORIDE 0.9% 1000ML 1,000 ML IV SCH ×2 (01:43→11:27)
[2017-12-03] MEDS: MoRPHine SULFATE 4 MG/ML 1 ML CARP\\VIAL IV PRN (04:16)
[2017-12-03 04:17] VITALS: BP 102/68; PULSE 88; TEMP 36.9; O2SAT 95
[2017-12-03] MEDS: CIPROFLOXACIN / D5W 400 MG in PREMIXED IN D5W 200 ML IV SCH (04:24)
[2017-12-03] MEDS ORDERED: CEFAZOLIN SOD 2000MG/15 ML IV PUSH IV ONE (06:00)
[2017-12-03 07:34] VITALS: BP 110/71; PULSE 91; TEMP 36.7; O2SAT 96
[2017-12-03 08:37] LABS: HEMATOCRIT 38.7 % (37-47); HEMOGLOBIN 13.3 g/dL (12.0-16.0); MEAN CELL VOLUME 86.2 fL (80-100); MEAN CORPUSCULAR HEMOGLOBIN 29.6 pg (25-34); MEAN CORPUSCULAR HGB CONC 34.4 g/dl (32-36); MEAN PLATELET VOLUME 9.2 fL (7.4-10.4); PLATELET COUNT 228 K/uL (130-400); RED CELL DISTRIBUTION WIDTH CV 13.2 % (11.5-14.5); RED CELL DISTRIBUTION WIDTH SD 41.7 fL (36.4-46.3); WHITE BLOOD COUNT 7.04 K/uL (4.8-10.8)
--- NOTE | 2017-12-03 08:40 | Anesthesiology Progress Note ---
Anesthesia Post Op Note Date & Time December 03, 2017 at 08:40 Vital Signs Vital Signs Past 12 Hours Date Time Temp Pulse Resp B/P (MAP) Pulse Ox O2 Delivery O2 Flow Rate FiO2 12/03/17 08:17 Room Air 12/03/17 07:34 36.7 91 18 110/71 (84) 96 Room Air 12/03/17 04:17 36.9 88 16 102/68 (79) 95 Room Air 12/03/17 00:03 36.4 95 16 109/71 (84) 97 Room Air 12/02/17 23:06 36.8 109 16 118/75 (89) 97 Room Air 12/02/17 22:00 37.1 69 18 123/77 (92) 96 Room Air 12/02/17 21:30 36.9 75 18 112/75 (87) 98 Room Air 12/02/17 21:14 36.9 73 18 110/74 (86) 98 Room Air 12/02/17 21:06 Room Air 12/02/17 20:55 68 18 122/84 98 Room Air 12/02/17 20:45 36.7 69 16 130/82 97 Room Air Notes Mental Status: alert / awake / arousable, participated in evaluation Pt Amnestic to Procedure: Yes Nausea / Vomiting: adequately controlled Pain: adequately controlled Airway Patency, RR, SpO2: stable & adequate BP & HR: stable & adequate Hydration State: stable & adequate Neuraxial Anesthesia: sensory block resolved Anesthetic Complications: no major complications apparent
[2017-12-03 09:04] LABS: ALBUMIN 2.6 gm/dl (3.4-5.0); CALCIUM 8.1 mg/dl (8.5-10.1); CREATININE 0.59 mg/dl (0.60-1.20); POTASSIUM 3.8 mmol/L (3.5-5.1); TOTAL PROTEIN 5.9 gm/dl (6.4-8.2)
[2017-12-03] MEDS ORDERED: ACETAMINOPHEN 325 MG TAB PO PRN (09:45)
[2017-12-03] MEDS ORDERED: OXYCODONE/ACETAMINOPHEN 5-325 TAB PO PRN ×2 (09:45)
[2017-12-03] MEDS ORDERED: OXYC-57 PO (10:16)
[2017-12-03 10:55] VITALS: BP 110/67; PULSE 98; TEMP 36.7; O2SAT 97
--- NOTE | 2017-12-03 11:30 | Surgery Progress Note ---
Surgery Progress Note Date of Service December 03, 2017. Subjective Post OP Day: 1 (Status post laparoscopic cholecystectomy placement of NAVIN drain) + feeling well, + pain controlled, + diet (Clear liquids), No chest pain, No SOB , No nausea, No vomiting Objective Vital Signs: Date Time Temp Pulse Resp B/P (MAP) Pulse Ox O2 Delivery O2 Flow Rate FiO2 12/03/17 10:55 36.7 98 16 110/67 (81) 97 12/03/17 08:17 Room Air 12/03/17 07:34 36.7 91 18 110/71 (84) 96 Room Air 12/03/17 04:17 36.9 88 16 102/68 (79) 95 Room Air 12/03/17 00:03 36.4 95 16 109/71 (84) 97 Room Air 12/02/17 23:06 36.8 109 16 118/75 (89) 97 Room Air 12/02/17 22:00 37.1 69 18 123/77 (92) 96 Room Air 12/02/17 21:30 36.9 75 18 112/75 (87) 98 Room Air 12/02/17 21:14 36.9 73 18 110/74 (86) 98 Room Air 12/02/17 21:06 Room Air 12/02/17 20:55 68 18 122/84 98 Room Air 12/02/17 20:45 36.7 69 16 130/82 97 Room Air 12/02/17 20:35 62 14 112/74 94 Room Air 12/02/17 20:25 66 16 124/82 99 Room Air 12/02/17 20:19 36.3 77 20 125/85 94 Room Air 12/02/17 15:16 37.3 70 17 135/90 (105) 98 Room Air 12/02/17 15:00 Room Air 12/02/17 11:58 36.9 71 20 124/86 (99) 98 Room Air 12/02/17 11:30 Room Air Physical Exam: NAVIN drainage (Serosanguineous) General Appearance: WD/WN, no apparent distress Head: normocephalic, atraumatic Neck: trachea midline Respiratory/Chest: no respiratory distress, no accessory muscle use Abdomen: non distended, soft, no organomegaly, no pulsatile mass, + tenderness (Right upper quadrant and at incision sites appropriate postop) Incision(s): clean, dry, intact, no erythema, no drainage Laboratory Results: Results Past 24 Hours Test 12/03/17 08:18 Range/Units White Blood Count 7.04 4.8-10.8 K/uL Red Blood Count 4.49 4.2-5.4 M/uL Hemoglobin 13.3 12.0-16.0 g/dL Hematocrit 38.7 37-47 % Mean Corpuscular Volume 86.2 80-100 fL Mean Corpuscular Hemoglobin 29.6 25-34 pg Mean Corpuscular Hemoglobin Concent 34.4 32-36 g/dl RDW Standard Deviation 41.7 36.4-46.3 fL RDW Coefficient of Variation 13.2 11.5-14.5 % Platelet Count 228 130-400 K/uL Mean Platelet Volume 9.2 7.4-10.4 fL Sodium Level 138 136-145 mmol/L Potassium Level 3.8 3.5-5.1 mmol/L Chloride Level 108 98-107 mmol/L Carbon Dioxide Level 25 21-32 mmol/L Anion Gap 5.0 3-11 mmol/L Blood Urea Nitrogen 7 7-18 mg/dl Creatinine 0.59 0.60-1.20 mg/dl Est Creatinine Clear Calc Drug Dose 136.5 ml/min Estimated GFR () 140.6 Estimated GFR (Non- 121.3 BUN/Creatinine Ratio 11.9 10-20 Random Glucose 96 70-99 mg/dl Calcium Level 8.1 8.5-10.1 mg/dl Total Bilirubin 0.5 0.2-1 mg/dl Aspartate Amino Transf (AST/SGOT) 52 15-37 U/L Alanine Aminotransferase (ALT/SGPT) 87 12-78 U/L Alkaline Phosphatase 90 45-117 U/L Total Protein 5.9 6.4-8.2 gm/dl Albumin 2.6 3.4-5.0 gm/dl Globulin 3.3 2.5-4.0 gm/dl Albumin/Globulin Ratio 0.8 0.9-2 Assessment & Plan Postop day #1 status post laparoscopic cholecystectomy -Vital signs stable afebrile postop -Improvement of LFTs and T bili within normal limits no leukocytosis -Moderate right upper quadrant incisional abdominal pain appropriate postop -NAVIN drain with minimal serosanguineous output -Urinating without difficulty and tolerating clear liquids Plan: We will add p.o. Percocet and p.o. Tylenol as needed for pain. Advance diet as tolerated Continue IV antibiotics until discharge DC NAVIN drains prior to discharge Discharge instructions reviewed at follow-up in surgical office in 1-[address] Santana has seen patient and agrees with above
--- NOTE | 2017-12-03 11:37 | Discharge Instructions ---
Discharge Instructions Date of Service December 03, 2017. Admission Reason for Admission: Acute Cholecystitis Discharge Discharge Diagnosis / Problem: same Discharge Goals Goal(s): Decrease discomfort, Improve function Activity Recommendations Activity Limitations: per Instructions/Follow-up section No heavy lifting over 20 pounds for 3 weeks No strenuous activity until cleared by surgeon No submerging incisions underwater for 2 weeks (no bathing, swimming, or hot tubs) No driving while taking narcotic pain medication or until you are pain free . Instructions / Follow-Up Instructions / Follow-Up You may shower in 3 days. Sponge bath and wash hair in meantime. Keep dressings clean and dry. After 3 days you may shower and remove outer dressings. Keep Steri-Strips on incisions for 7 days and then remove. They may fall off on their own that is okay. Walking and light activity is encouraged to prevent blood clots from forming You will be given narcotic pain medication as needed for moderate severe pain. This medication may cause drowsiness or constipation. To combat constipation -May take [id number] stool softener such as Colace daily or twice daily as needed while taking pain medication -Drink plenty of water daily -Avoid foods that constipate -May take gentle laxative for prune juice if needed Follow-up in surgical office in 1-2 weeks. Call office at [phone] to make an appointment. Current Hospital Diet Patient's current hospital diet: Full Liquid Diet Discharge Diet Recommended Diet: Regular Diet Procedures Procedures Performed: Laparoscopic Cholecystectomy Pending Studies Studies pending at discharge: yes List of pending studies: Gallbladder pathology. Will be reviewed at follow up visit Medical Emergencies . Who to Call and When: Medical Emergencies: If at any time you feel your situation is an emergency, please call 911 immediately. . Non-Emergent Contact Non-Emergency issues call your: Primary Care Provider, Surgeon Call Non-Emergent contact if: you have a fever, temperature is above 101, your pain is not controlled, your pain is worsening, your pain is unusual for you, wound has increased drainage, wound has increased redness, wound has increased pain . "Provider Documentation" section prepared by Adriana Colon. . [place] Drug Monitoring Program Search Results: patient reviewed within database, no issues identified
[2017-12-03 12:12] VITALS: BP 110/67; PULSE 98; TEMP 36.7; O2SAT 97
== END 2017-12-03 12:38 | disposition home or self-care (01) | DRG 419 ==
LOC: C.EDB 10:02 → ENRESERV 15:35 → C.MSN 16:26
PROVIDERS: ADMIT Surgery; ATTEND Surgery
PROC: 0FT44ZZ Resection of Gallbladder, Percutaneous Endoscopic Approach (ICD-10-PCS; principal; 2017-12-02 11:30)
DX: K80.00 Calculus of gallbladder with acute cholecystitis without obstruction (principal); K25.9 Gastric ulcer, unspecified as acute or chronic, without hemorrhage or perforation; F41.9 Anxiety disorder, unspecified; F32.9 Major depressive disorder, single episode, unspecified; F90.9 Attention-deficit hyperactivity disorder, unspecified type; Z79.3 Long term (current) use of hormonal contraceptives; Z79.899 Other long term (current) drug therapy